=== PATIENT | male | born 1965 | race Caucasian/White ===

== ENCOUNTER 2024-11-08 17:37 | Inpatient (IN) | payer MEDICAID, MEDICARE ==
--- NOTE | 2024-11-08 18:11 | ED ---
Psych HPI - General Chief Complaint: Psychiatric Symptoms Stated Complaint: vomiting, needs meds Time Seen by Provider: 11/08/24 17:57 Source: patient, RN notes reviewed Mode of arrival: ambulatory - History of Present Illness Initial Comments: 58-year-old male presenting for suicidal ideation. States he has been off his meds since November 01 and is now hearing voices in his head that are telling him that he is no good and he should kill himself. Patient states he recently moved here earlier this month from [place]. He had a psychiatrist in [place] that would prescribe his medications but due to the move he has not been able to obtain a new prescription. Denies homicidal ideation. He lives with his cousin. He does endorse nasal congestion and cough over the past several days, otherwise no medical complaints. - Related Data Allergies Allergy/AdvReac Type Severity Reaction Status Date / Time butorphanol [From Stadol] Allergy Unknown Verified 11/08/24 20:31 ketorolac [From Toradol] Allergy Unknown Verified 11/08/24 20:31 levofloxacin [From Levaquin] Allergy Unknown Verified 11/08/24 20:31 morphine Allergy Unknown Verified 11/08/24 20:31 Sulfa (Sulfonamide Allergy Unknown Verified 11/08/24 20:31 Antibiotics) Review of Systems ROS Statement: Those systems with pertinent positive or pertinent negative responses have been documented in the HPI. ROS Other: All systems not noted in ROS Statement are negative. Past Medical History Past Medical History: Cancer, COPD, Hypertension Additional Past Medical History / Comment(s): chronic back pain History of Any Multi-Drug Resistant Organisms: None Reported Additional Past Surgical History / Comment(s): prostate cx Past Psychological History: Bipolar, Depression, Schizoaffective Disorder Smoking Status: Current every day smoker Past Alcohol Use History: None Reported Past Drug Use History: None Reported General Exam Limitations: no limitations General appearance: alert, in no apparent distress Head exam: Present: atraumatic, normocephalic, normal inspection Eye exam: Present: normal appearance, PERRL, EOMI. Absent: scleral icterus, conjunctival injection, periorbital swelling Neurological exam: Present: alert, oriented X3 Psychiatric exam: Present: normal mood, flat affect, suicidal ideation. Absent: homicidal ideation Skin exam: Present: warm, dry, intact, normal color. Absent: rash Course Vital Signs 11/08/24 17:41 Temperature 97.7 F Pulse Rate 81 Respiratory 16 Rate Blood Pressure 162/110 O2 Sat by Pulse 95 Oximetry Medical Decision Making - Medical Decision Making Was pt. sent in by a medical professional or institution (, [facility], [facility], urgent care, hospital, or [place] [facility] [place]...) When possible be specific @ -No Did you speak to anyone other than the patient for history (EMS, parent, family, police, friend...)? What history was obtained from this source @ -No Did you review nursing and triage notes (agree or disagree)? Why? @ -I reviewed and agree with nursing and triage notes Were old charts reviewed (outside hosp., previous admission, EMS record, old EKG, old radiological studies, urgent care reports/EKG's, [place] [facility] [place] records)? Report findings @ -No old charts were reviewed Differential Diagnosis (chest pain, altered mental status, abdominal pain women, abdominal pain men, vaginal bleeding, weakness, fever, dyspnea, syncope, headache, dizziness, GI bleed, back pain, seizure, CVA, palpatations, mental health, musculoskeletal)? @ -Differential Mental Health Depression, anxiety, bipolar, psychosis, schizophrenia, borderline personality, situational depression, adjustment disorder, behavioral disorder, brain tumor, malingering, substance abuse, encephalopathy, medication reaction, dementia, hypothyroidism, degenerative neurologic disorder, lupus.... This is not meant to be all-inclusive list EKG interpreted by me (3pts min.). @ -None X-rays interpreted by me (1pt min.). @ -None done CT interpreted by me (1pt min.). @ -None done U/S interpreted by me (1pt. min.). @ -None done What testing was considered but not performed or refused? (CT, X-rays, U/S, labs)? Why? @ -None What meds were considered but not given or refused? Why? @ -None Did you discuss the management of the patient with other professionals (professionals i.e. , [facility], [facility], lab, RT, psych nurse, social media senior associate, patient care nursing assistant, teacher, security officer supervisor, case finisher)? Give summary @ -I spoke with Trisha from [facility] who recommends admission for inpatient psychiatric treatment Was smoking cessation discussed for >3mins.? @ -No Was critical care preformed (if so, how long)? @ -No Were there social determinants of health that impacted care today? How? (Homelessness, low income, unemployed, alcoholism, drug addiction, transportation, low edu. Level, literacy, decrease access to med. care, assisted, rehab)? @ -No Was there de-escalation of care discussed even if they declined (Discuss DNR or withdrawal of care, Hospice)? DNR status @ -No What co-morbidities impacted this encounter? (DM, HTN, Smoking, COPD, CAD, Cancer, CVA, ARF, Chemo, Hep., AIDS, mental health diagnosis, sleep apnea, morbid obesity)? @ -None Was patient admitted / discharged? Hospital course, mention meds given and route, prescriptions, significant lab abnormalities, going to OR and other pertinent info. @ -Admitted. 58-year-old male presenting for suicidal ideations. Patient has been off of his psychiatric medications and is hearing voices in his head telling him to kill himself. Patient endorses nasal congestion and cough however no other medical complaints at this time. Patient is negative for influenza, COVID-19, and RSV. Patient is medically cleared to be seen by [facility]. I spoke with Trisha from [facility] who recommends admission for inpatient psychiatric treatment. I agree with this plan. Patient is going to sign himself in for admission. Case was discussed with my ED attending Dr. Arreola. Undiagnosed new problem with uncertain prognosis? @ -No Drug Therapy requiring intensive monitoring for toxicity (Heparin, Nitro, Insulin, Cardizem)? @ -No Were any procedures done? @ -No Diagnosis/symptom? @ -Suicidal ideation Acute, or Chronic, or Acute on Chronic? @ -Acute Uncomplicated (without systemic symptoms) or Complicated (systemic symptoms)? @ -Complicated Side effects of treatment? @ -No Exacerbation, Progression, or Severe Exacerbation? @ -No Poses a threat to life or bodily function? How? (Chest pain, USA, [place], pneumonia, PE, COPD, DKA, ARF, appy, cholecystitis, CVA, Diverticulitis, Homicidal, Suicidal, threat to staff... and all critical care pts) @ -Yes, suicidal - Lab Data Lab Results 11/08/24 11/08/24 Range/Units 18:31 18:31 Urine Opiates Screen Not Detected (NotDetected) Ur Oxycodone Screen Not Detected (NotDetected) Urine Methadone Screen Not Detected (NotDetected) Ur Barbiturates Screen Not Detected (NotDetected) U Tricyclic Antidepress Not Detected (NotDetected) Ur Phencyclidine Scrn Not Detected (NotDetected) Ur Amphetamines Screen Not Detected (NotDetected) U Methamphetamines Scrn Not Detected (NotDetected) U Benzodiazepines Scrn Not Detected (NotDetected) Urine Cocaine Screen Not Detected (NotDetected) U Marijuana (THC) Screen Not Detected (NotDetected) Influenza Type A (PCR) Not Detected (Not Detectd) Influenza Type B (PCR) Not Detected (Not Detectd) RSV (PCR) Not Detected (Not Detectd) SARS-CoV-2 (PCR) Not Detected (Not Detectd) Disposition Clinical Impression: Suicidal ideation Disposition: ADMITTED IP TO THIS HOSP Referrals: None,Stated [Primary Care Provider] - 1-2 days Time of Disposition: 20:32
[2024-11-08 19:08] LABS: Amphetamine Screen,Urine Not Detected (NotDetected); Barbiturate Screen,Urine Not Detected (NotDetected); Benzodiazepines Screen,Urine Not Detected (NotDetected); Cocaine Screen,Urine Not Detected (NotDetected); Methadone Screen, Urine Not Detected (NotDetected); Opiate Screen,Urine Not Detected (NotDetected); Oxycodone Screen, Urine Not Detected (NotDetected); Phencyclidine Screen,Urine Not Detected (NotDetected); Tricyclic Antidepressant,Urine Not Detected (NotDetected); Urn Cannabinoid Scrn Not Detected (NotDetected)
[2024-11-08 19:27] LABS: Influenza A Not Detected (Not Detectd); Influenza B Not Detected (Not Detectd); RSV Not Detected (Not Detectd)
[2024-11-09] MEDS ORDERED: haloperidoL 5 MG TAB PO PRN (00:45)
[2024-11-09] MEDS ORDERED: IBUPROFEN 600 MG TAB PO PRN (00:45)
[2024-11-09] MEDS ORDERED: ACETAMINOPHEN TAB 325 MG TAB PO PRN (00:45)
[2024-11-09] MEDS ORDERED: LORazepam 2 MG/ML INJ IM PRN (00:45)
[2024-11-09] MEDS ORDERED: HALOPERIDOL LACTATE 5 MG/ML 1 ML VIAL IM PRN (00:45)
[2024-11-09] MEDS ORDERED: MAGNESIUM HYDROXIDE 2,400 MG/30 ML CUP PO PRN (00:45)
[2024-11-09] MEDS: LORazepam 1 MG TAB PO PRN (09:04)
[2024-11-09 09:15] LABS: Amorphous Sediment,Urine Rare /hpf; Appearance,Urine Cloudy (Clear); Bilirubin,Urine Negative (Negative); Blood,Urine Negative (Negative); Calcium Oxalate Crystals,Urine Rare /hpf; Color,Urine Yellow; Glucose,Urine (UA) Negative (Negative); Ketones,Urine Negative (Negative); Leukocyte Esterase,Urine Negative (Negative); Mucus,Urine Rare /hpf; Nitrite,Urine Negative (Negative); Protein,Urine Trace (Negative); RBC,Urine 2 /hpf (0-5); Specific Gravity,Urine 1.022 (1.001-1.035); Squamous Epithelial Cell,Urine <1 /hpf (0-4); Urobilinogen,Urine <2.0 mg/dL (<2.0); WBC,Urine 3 /hpf (0-5)
--- NOTE | 2024-11-09 16:04 | P.HP ---
Psychiatric H&P - . H&P Date: 11/09/24 History & Physical: Allergies Allergy/AdvReac Type Severity Reaction Status Date / Time butorphanol [From Stadol] Allergy Unknown Verified 11/08/24 20:31 ketorolac [From Toradol] Allergy Unknown Verified 11/08/24 20:31 levofloxacin [From Levaquin] Allergy Unknown Verified 11/08/24 20:31 morphine Allergy Unknown Verified 11/08/24 20:31 Sulfa (Sulfonamide Allergy Unknown Verified 11/08/24 20:31 Antibiotics) Vital Signs Temp 97.8 F 11/09/24 10:02 Pulse 69 11/09/24 10:02 Resp 18 11/09/24 10:02 BP 114/74 11/09/24 10:02 Pulse Ox 96 11/09/24 01:28 FiO2 Intake & Output 11/08/24 11/09/24 11/09/24 18:59 06:59 18:59 Weight 96.615 kg Laboratory Last Values Urine Color Yellow 11/08/24 18:31 Urine Appearance Cloudy (Clear) 11/08/24 18:31 Urine pH 7.0 (5.0-8.0) 11/08/24 18:31 Ur Specific [place] 1.022 (1.001-1.035) 11/08/24 18:31 Urine Protein Trace (Negative) H 11/08/24 18:31 Urine Glucose (UA) Negative (Negative) 11/08/24 18:31 Urine Ketones Negative (Negative) 11/08/24 18:31 Urine Blood Negative (Negative) 11/08/24 18:31 Urine Nitrite Negative (Negative) 11/08/24 18:31 Urine Bilirubin Negative (Negative) 11/08/24 18:31 Urine Urobilinogen <2.0 mg/dL (<2.0) 11/08/24 18:31 Ur Leukocyte Esterase Negative (Negative) 11/08/24 18:31 Urine RBC 2 /hpf (0-5) 11/08/24 18:31 Urine WBC 3 /hpf (0-5) 11/08/24 18:31 Ur Squamous Epith Cells <1 /hpf (0-4) 11/08/24 18:31 Calcium Oxalate Crystal Rare /hpf (None) H 11/08/24 18:31 Amorphous Sediment Rare /hpf (None) H 11/08/24 18:31 Urine Mucus Rare /hpf (None) H 11/08/24 18:31 Urine Opiates Screen Not Detected (NotDetected) 11/08/24 18:31 Ur Oxycodone Screen Not Detected (NotDetected) 11/08/24 18:31 Urine Methadone Screen Not Detected (NotDetected) 11/08/24 18:31 Ur Barbiturates Screen Not Detected (NotDetected) 11/08/24 18:31 U Tricyclic Antidepress Not Detected (NotDetected) 11/08/24 18:31 Ur Phencyclidine Scrn Not Detected (NotDetected) 11/08/24 18:31 Ur Amphetamines Screen Not Detected (NotDetected) 11/08/24 18:31 U Methamphetamines Scrn Not Detected (NotDetected) 11/08/24 18:31 U Benzodiazepines Scrn Not Detected (NotDetected) 11/08/24 18:31 Urine Cocaine Screen Not Detected (NotDetected) 11/08/24 18:31 U Marijuana (THC) Screen Not Detected (NotDetected) 11/08/24 18:31 Influenza Type A (PCR) Not Detected (Not Detectd) 11/08/24 18:31 Influenza Type B (PCR) Not Detected (Not Detectd) 11/08/24 18:31 RSV (PCR) Not Detected (Not Detectd) 11/08/24 18:31 SARS-CoV-2 (PCR) Not Detected (Not Detectd) 11/08/24 18:31 11/09/24 15:56 58-year-old male presenting for suicidal ideation. States he has been off his meds since November 01 and is now hearing voices in his head that are telling him that he is no good and he should kill himself. Patient states he recently moved here earlier this month from [place]. He had a psychiatrist in [place] that would prescribe his medications but due to the move he has not been able to obtain a new prescription. Denies homicidal ideation. He lives with his cousin. He does endorse nasal congestion and cough over the past several days, otherwise no medical complaints. Current medications before he ran out: He was taking Haldol 5 mg 3 times a day which had been added on to Zyprexa 15 mg at night. They have decided not to increase his Zyprexa could already make him too sleepy but he was still leg with voices so they added Haldol. He was also on Cogentin 1 mg 3 times a day for side effects of Haldol. He was also on the Zyprexa 50 mg at night and prazosin 3 mg for PTSD nightmares. He was also on Effexor 150 backed up by BuSpar 15 mg 3 times a day. He was unable to explain why he didn't go and make sure that he refills. At this point he recognizes that he does not do well off of them. He said, "partially I have trouble with my memory". Social history: The patient's only child born to his parents that took off at and was never seen again. His mother said that this father had a daughter with her noise schizophrenia and a son withbipolar disorder. Mom got when the patient was fine and that man treated him well mom about a year ago at age 77 or his stepdad is still alive. 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 This in spite of the fact that he was discharged dishonorably for "cocaine methamphetamine" he says he hasn't done any cooking since although he did use some as recently as a year ago. He denies any alcohol or other substance use now or in the past. The patient dropped out of school in the 10th grade he had turned 19 decided to join the . No legal history. Mental status exam the patient was cooperative. I found him lying in his bed but he got up and came to talk with. Affect is flat response times are slow in his right his memory is very poor I gave him 3 things to remember and he couldn't even repeat them live alone remember even one of them 5 minutes later. He did much better on the presidents remembering them in order back to the younger Carlee. He abstracted that cats and snakes move and bite at first he said there was nothing similar it's hard for him to get his brain going. He could spell world forward and eventually got it backward although was very hard could not subtract 7 from 100. For the grass looks greener on the side defense he said [id number] side. He has multiple psychotic symptoms including voices put him down until to kill himself and they are quite dangerous. He also feels like somebody comes and sits on top of him on his bed at night is very frightening feels that people are looking at him following him and poisoning his food. Dystonic she see real people that aren't there he does see silhouettes. No manic episodes now or in the past. Self care was adequate although minimal, he most slowly he was oriented to where he was somewhat day of the week it was. Assessment patient has schizoaffective disorder although could be major depression with psychosis. He also has PTSD reasonably well-controlled especially when he takes his medicine currently think he is a danger to himself with the voices telling him to hurt himself. Once the medicines kick back in ag ain that should go away he just wants to take the same medicine he was on before and get connected with a med provider. Plan restart the antipsychotics first and then see whether adding the antidepre ssants is safe and make sense but they can stir up to psychosis if added first.
[2024-11-09] MEDS: haloperidoL 5 MG TAB PO SCH (16:36)
[2024-11-09] MEDS: BENZTROPINE MESYLATE 1 MG TAB PO SCH (16:36)
[2024-11-09] MEDS: OLANZapine 5 MG TAB PO SCH (20:06)
[2024-11-09] MEDS: PRAZOSIN 1 MG CAP PO SCH (20:06)
[2024-11-09] MEDS: traZODone HCL 100 MG TAB PO SCH (20:06)
--- NOTE | 2024-11-09 21:29 | P.MDCNMH ---
History of Present Illness H&P Date: 11/09/24 Patient is a 58-year-old male with history of hypertension, GERD who presented for evaluation of mental health needs. Medicine was consulted for medical evaluation. Patient states that he has lingering cough with some sputum production over the last 2 months but has improved over time. He also has some mild chronic back pain. Otherwise he has no complaints. Patient denies fever, chest pain, shortness of breath, abdominal pain, dysuria. Patient is afebrile, blood pressure 114/74, pulse 69, O2 saturation 96% on room air. UA, urine toxicology, and viral respiratory panel are unremarkable. No imaging to review. Social history: Patient endorses daily tobacco use, denies alcohol and recrea tional drug use. Review of systems: Reviewed, pertinent positive negatives as per HPI Gen: In NAD, non-toxic HEENT: normocephalic, atraumatic, hearing acuity is intact, mucous membranes moist CVS: perfusing all extremities well, no pitting edema Respiratory: symmetric chest expansion, no accessory muscle use GI: soft, NTTP, ND : no suprapubic tenderness, no CVA tenderness MSK/Derm: no rashes, cyanosis Neuro: CN II-XII intact, no motor weakness Assessment/plan: #Hypertension resume home lisinopril #GERD resume home pantoprazole #COPD resume home albuterol inhaler #Schizoaffective versus MDD with psychosis #PTSD -Management per primary psychiatry service Thank you for this consult, please reach out if any further questions/concerns. Past Medical History Past Medical History: Cancer, COPD, Hypertension Additional Past Medical History / Comment(s): chronic back pain History of Any Multi-Drug Resistant Organisms: None Reported Additional Past Surgical History / Comment(s): prostate cx Past Psychological History: Bipolar, Depression, Schizoaffective Disorder Smoking Status: Current every day smoker Past Alcohol Use History: None Reported Past Drug Use History: None Reported Medications and Allergies Home Medications Medication Instructions Recorded Confirmed Type Albuterol Inhaler [Ventolin Hfa 2 puff INHALATION RT-QID PRN 11/08/24 11/08/24 History Inhaler] Cogentin (Unknown Strength) 1 dose PO DIRECTED 11/08/24 11/08/24 History Esomeprazole Magnesium [NexIUM] 40 mg PO DAILY 11/08/24 11/08/24 History Fluticasone Nasal [place] [Flonase 2 spray EA NOSTRIL BID PRN 11/08/24 11/08/24 History Nasal [place]] OLANZapine 15 mg PO HS 11/08/24 11/08/24 History Prazosin HCl [Minipress] 2 mg PO HS 11/08/24 11/08/24 History Prazosin [Minipress] 1 mg PO HS 11/08/24 11/08/24 History Venlafaxine HCl [Effexor XR] 150 mg PO DIRECTED 11/08/24 11/08/24 History haloperidoL [Haldol] 5 mg PO DIRECTED 11/08/24 11/08/24 History lisinopriL [Zestril] 20 mg PO DIRECTED 11/08/24 11/08/24 History Allergies Allergy/AdvReac Type Severity Reaction Status Date / Time butorphanol [From Stadol] Allergy Unknown Verified 11/08/24 20:31 ketorolac [From Toradol] Allergy Unknown Verified 11/08/24 20:31 levofloxacin [From Levaquin] Allergy Unknown Verified 11/08/24 20:31 morphine Allergy Unknown Verified 11/08/24 20:31 Sulfa (Sulfonamide Allergy Unknown Verified 11/08/24 20:31 Antibiotics) Physical Exam Vitals: Vital Signs Temp Pulse Resp BP Pulse Ox 11/09/24 10:02 97.8 F 69 18 114/74 11/09/24 01:28 97.6 F 108 H 12 153/82 96 Cranial Nerve Examination - Cranial Nerves Cranial Nerve II- Optic: Intact Cranial Nerve III- Oculomotor: Intact Cranial Nerve IV- Trochlear: Intact Cranial Nerve V- Trigeminal: Intact Cranial Nerve - Abducens: Intact Cranial Nerve VII- Facial: Intact Cranial Nerve VIII- Auditory: Intact Cranial Nerve IX- Glossopharyngeal: Intact Cranial Nerve X- Vagus: Intact Cranial Nerve XI- Accessory: Intact Cranial Nerve XII- Hypoglossal: Intact Results Labs: Abnormal Lab Results - Last 24 Hours (Table) 11/08/24 Range/Units 18:31 Urine Protein Trace H (Negative) Calcium Oxalate Crystal Rare H (None) /hpf Amorphous Sediment Rare H (None) /hpf Urine Mucus Rare H (None) /hpf
[2024-11-09] MEDS: lisinopriL 20 MG TAB PO SCH (21:36)
[2024-11-09] MEDS ORDERED: ALBUTEROL INHALER 60 PUFF/8 GM INHALER (MHU) INHALATION PRN (22:00)
--- NOTE | 2024-11-10 08:18 | P.PN ---
Subjective Progress Note Date: 11/10/24 Principal diagnosis: schizoaffective disorder 58-year-old male presenting for suicidal ideation. States he has been off his meds since November 01 and is now hearing voices in his head that are telling him that he is no good and he should kill himself. Patient states he recently moved here earlier this month from [place]. He had a psychiatrist in [place] that would prescribe his medications but due to the move he has not been able to obtain a new prescription. Denies homicidal ideation. He lives with his cousin. He does endorse nasal congestion and cough over the past several days, otherwise no medical complaints. Current medications: He is back on the same medications he did before he came in and says he is tolerating them denies any constipation dizziness stiffness blurred vision or restlessness Mental status exam: Patient was somewhat sleepy.leslie ham came to the office to talk to me but didn't have much to say and basically just want to get on to breakfast. . He has multiple psychotic symptoms including voices put him down until to kill himself and they are quite dangerous. He also feels like somebody comes and sits on top of him on his bed at night is very frightening feels that people are looking at him following him and poisoning his food. He says that he does not see real people that aren't there but he does see silhouettes. No manic episodes now or in the past. Self care was adequate although minimal, he most slowly he was oriented to where he was somewhat day of the week it was. Assessment patient has schizoaffective disorder although could be major depression with psychosis. He also has PTSD reasonably well-controlled especially when he takes his medicine. Currently I think he is a danger to himself with the voices telling him to hurt himself. Once the medicines kick back in, the voices should go away. He just wants to take the same medicine he was on before and get connected with a med provider. he said he is tolerating his medications well had a good night sleep Skip Breakfast and Continue to Recover Objective - Vital Signs Vital signs: Vital Signs Temp 97.8 F 11/09/24 10:02 Pulse 69 11/09/24 10:02 Resp 18 11/09/24 10:02 BP 114/74 11/09/24 10:02 Pulse Ox 96 11/09/24 01:28 FiO2 Intake & Output 11/09/24 11/10/24 11/10/24 18:59 06:59 18:59 Weight 96.615 kg - Labs Labs: Abnormal Lab Results - Last 24 Hours (Table) 11/08/24 Range/Units 18:31 Urine Protein Trace H (Negative) Calcium Oxalate Crystal Rare H (None) /hpf Amorphous Sediment Rare H (None) /hpf Urine Mucus Rare H (None) /hpf
[2024-11-10] MEDS: PANTOPRAZOLE 40 MG TABLET PO SCH (08:41)
[2024-11-10 09:49] LABS: ALT 16 U/L (4-49); AST 18 U/L (17-59); African American GFR (CKD) >90 (>60 ml/min/1.73 sqM); Albumin 4.3 g/dL (3.5-5.0); Alkaline Phosphatase 44 U/L (38-126); Anion Gap 9 mmol/L; Blood Urea Nitrogen 17 mg/dL (9-20); Calcium 9.8 mg/dL (8.4-10.2); Carbon Dioxide 28 mmol/L (22-30); Chloride 101 mmol/L (98-107); Glucose 164 mg/dL (74-99); Non-African American GFR(CKD) 78 (>60 ml/min/1.73 sqM); Potassium 4.1 mmol/L (3.5-5.1); Sodium 138 mmol/L (137-145); Total Bilirubin 0.6 mg/dL (0.2-1.3); Total Protein 6.7 g/dL (6.3-8.2)
[2024-11-10 10:07] LABS: Basophils % (A) 0 %; Eosinophils # (A) 0.1 k/uL (0-0.7); Eosinophils % (A) 1 %; HCT 49.8 % (39.0-53.0); HGB 15.5 gm/dL (13.0-17.5); Lymphocytes # (A) 1.6 k/uL (1.0-4.8); Lymphocytes % (A) 26 %; MCH 28.8 pg (25.0-35.0); MCHC 31.1 g/dL (31.0-37.0); MCV 92.7 fL (80.0-100.0); Mean Platelet Volume 6.6; Monocytes # (A) 0.3 k/uL (0-1.0); Monocytes % (A) 4 %; Neutrophils # (A) 4.3 k/uL (1.3-7.7); Neutrophils % (A) 66 %; Platelet Count 234 k/uL (150-450); RBC 5.37 m/uL (4.30-5.90); RDW 12.8 % (11.5-15.5); WBC 6.5 k/uL (3.8-10.6)
[2024-11-10 12:48] LABS: LDL Cholesterol,Calculated 107.9 mg/dL (0.0-131.0)
[2024-11-10] MEDS: MAG HYDROX/AL HYDROX/SIMETH 355 ML BOTTLE PO PRN (18:53)
[2024-11-10] MEDS: FLUTICASONE NASAL 50MCG/SPRAY 16GM BTL EA NOSTRIL PRN (20:02)
[2024-11-10 20:23] VITALS: RESP 16
--- NOTE | 2024-11-11 13:04 | P.PN ---
Progress Note - Text Progress Note Date: 11/11/24 Interval History: Patient was seen wandering the hallways and was directable and agreeable to sp jeronimo with senior copywriter in the office. Patient appeared bright in affect, mentioning he feels "a lot better" due to restarting the medications. Patient mentioned running out of medications when he moved from [place] to here as he recently moved to [place] to be with family. He wishes to get reconnected with services in this location. He states since being restarted on medications, he no longer hears voices, and is tolerating the medications well with no adverse effects. At this time patient denies any suicidal or homicidal ideations, intent or plan. Patient denies any auditory, visual hallucinations and denies any paranoia or delusions. Patient denies any side effects from the medications and has been compliant with meds. Mental Status Exam: General Appearance: Patient appears to be stated age is alert, directable, and cooperative. He has fair grooming and hygiene Behavior: Patient is calmly seated without any agitated behavior. Speech: Patient's speech is fluent and nonpressured. Mood/Affect: Mood is improving mildly, affect is congruent and reactive. Suicidality/Homicidality: Patient denies having any suicidal or homicidal ideation intent or plan. Perceptions: Patient denies any visual hallucinations and denies any auditory hallucinations Though content/process: There is no evidence of any delusional thought content and thought process is linear and goal-directed. Memory and concentration: AOX3, grossly intact for the purposes of this session Judgment and insight: Improving mildly Assessment Schizoaffective disorder PTSD Plan: -Patient continues to meet criteria for inpatient psychiatric admission for symptom stabilization and safety. Patient has signed adult voluntary form and medication consent and was placed in patient's chart. -Medications: Haldol decanoate 100 mg IM to be given today, patient to receive second dose of Haldol decanoate 50 mg IM by his outpatient provider in 3-7 days. Patient to continue oral Haldol 5 mg 3 times daily until he receives his next monthly shot. Continue Zyprexa 15 mg at bedtime for psychosis, Cogentin 1 mg 3 times daily for EPS, prazosin 3 mg at bedtime for nightmares, trazodone 100 mg at bedtime for insomnia -When necessary Ativan and Haldol for agitation/aggression. -Labs: WNL other than elevated glucose -SW on board for discharge planning. Encouraged the patient to participate in milieu. Patient to be discharged back to cousin's tomorrow pending transition to [facility]
[2024-11-11] MEDS: HALOPERIDOL DECANOATE 100 MG/ML 1 ML VIAL IM ONE (14:01)
[2024-11-11] MEDS: NICOTINE GUM (POLACRILEX) 2 MG GUM BUCCAL PRN (20:08)
[2024-11-12 08:25] VITALS: BP 115/82; PULSE 91; TEMP 96.8
--- NOTE | 2024-11-12 15:11 | P.DS ---
Providers Date of admission: 11/09/24 00:37 Expected date of discharge: 11/12/24 Attending physician: Shireen Serrano MD Consults: 11/09/24 00:45 Consult Physician Routine Consulting Provider: Stefani Rivas Consult Reason/Comments: H&P and medical Do you want consulting provider notified?: Yes Primary care physician: Stated None - Discharge Diagnosis(es) (1) Schizoaffective disorder Status: Acute Priority: High (2) PTSD (post-traumatic stress disorder) Status: Acute Priority: Medium Hospital Course: Admission HPI: Admission note was completed by Dr. Goff "58-year-old male presenting for suicidal ideation. States he has been off his meds since November 01 and is now hearing voices in his head that are telling him that he is no good and he should kill himself. Patient states he recently moved here earlier this month from [place]. He had a psychiatrist in [place] that would prescribe his medications but due to the move he has not been able to obtain a new prescription. Denies homicidal ideation. He lives with his cousin. He does endorse nasal congestion and cough over the past several days, otherwise no medical complaints. Current medications before he ran out: He was taking Haldol 5 mg 3 times a day which had been added on to Zyprexa 15 mg at night. They have decided not to increase his Zyprexa could already make him too sleepy but he was still leg with voices so they added Haldol. He was also on Cogentin 1 mg 3 times a day for side effects of Haldol. He was also on the Zyprexa 50 mg at night and prazosin 3 mg for PTSD nightmares. He was also on Effexor 150 backed up by BuSpar 15 mg 3 times a day. He was unable to explain why he didn't go and make sure that he refills. At this point he recognizes that he does not do well off of them. He said, "partially I have trouble with my memory"." Hospital course: Upon admission to the unit patient was directable and agreeable to commence treatment and signed adult voluntary form.. Patient got along well with other patients on the unit and followed unit protocol. Patient was compliant with the medications and denied any side effects throughout hospital course. Patient was started on Haldol 5 mg 3 times daily for psychosis, Zyprexa 15 mg at bedtime for psychosis, prazosin 3 mg at bedtime for nightmares, Cogentin 1 mg 3 times daily for EPS, trazodone 100 mg at bedtime for insomnia. Patient was transition to Haldol decanoate and received 100 mg IM on 11/11/2024, patient to receive the second loading dose of 50 mg IM in 3-7 days from this date with the monthly dose of 150 mg IM every 4 weeks thereafter. Patient encouraged to continue oral Haldol in the interim. Patient spoke of his stressors and engaged in therapy both group and individual. Patient was also seen by medical team for history and physical exam. Throughout the course of the hospitalization patient gradually improved with regards to mood, anxiety, sleep and returned back to their baseline level of functioning. On the day of discharge patient denied any suicidal or homicidal ideations intent or plan denied any auditory or visual hallucinations. The patient denied any access to guns or weapons. Patient denied any paranoia and did not endorse any delusions. Patient does not have a significant history of substance abuse and was counseled on abstaining from all substances including alcohol and marijuana. Patient was also counseled on the medications and need for regular compliance and was encouraged to follow-up with their outpatient appointment for mental health and also for primary care. Prior to discharge a family meeting will be arranged by director social welfare to answer any questions and ensure safety upon discharge including making sure that guns/weapons are either removed from the home or locked away. Patient to be discharged back home with cousin and will follow-up with [facility]. Mental status exam: General Appearance: Patient appears to be stated age is alert, pleasant, and cooperative. Patient is in no acute distress and has improved hygiene and grooming Behavior: Patient is calmly seated without any agitated behavior. Speech: Patient's speech is fluent and nonpressured. Mood/Affect: Patient reports their mood is "better", affect is congruent and euthymic. Suicidality/Homicidality: Patient denies having any suicidal or homicidal ideation intent or plan. Perceptions: Patient denies any auditory or visual hallucinations. Though content/process: There is no evidence of any delusional thought content and thought process is linear and goal-directed. More future oriented Memory and concentration: AOX3, grossly intact for the purposes of this session. Can spell "WORLD" backwards correctly. Judgment and insight: Good Impression: Schizoaffective disorder PTSD Plan: -Continue with discharge today as patient has improved and stabilized psychiatrically and is not currently an imminent threat to themself and/or others. -Continue medications: Haldol 5 mg 3 times daily, Zyprexa 15 mg at bedtime, Cogentin 1 mg 3 times daily, prazosin 3 mg at bedtime, trazodone 100 mg at bedtime. Patient received Haldol decanoate 100 mg IM on 11/11/2024 and to receive second loading dose of 50 mg IM in 3-7 days from this date with the monthly maintenance dose of 150 mg IM every 4 weeks. -Patient was counseled on the need for medication compliance and appropriate follow-up at mental health and also primary care for medical issues. Patient verbalized understanding and agreed. -Social work to help coordinate patients discharge today arrange for and conduct family meeting to ensure safety upon discharge and answer any questions/ concerns. also to ensure safe home environment that guns/weapons are either removed from the home or locked away. Social work also to arrange for patients follow up appointments with [facility] for psychiatric care along with follow up with primary care provider. -Patient counseled on abstaining from recreational drugs and marijuana and alcohol. Was informed/educated on the adverse effects on their physical and mental health. Patient verbally agreed and understood. -Patient was instructed to return to the hospital or seek immediate medical care if their psychiatric or medical symptoms do worsen or reoccur. Abnormal Labs 11/08/24 11/10/24 18:31 09:07 Glucose 164 H Urine Protein Trace H Calcium Oxalate Crystal Rare H Amorphous Sediment Rare H Urine Mucus Rare H Vital Signs Temp 96.8 F L 11/12/24 08:24 Pulse 91 11/12/24 08:24 Resp 16 11/11/24 20:09 BP 115/82 11/12/24 08:24 Pulse Ox 97 11/12/24 08:24 FiO2 Allergies Allergy/AdvReac Type Severity Reaction Status Date / Time butorphanol [From Stadol] Allergy Unknown Verified 11/09/24 23:04 ketorolac [From Toradol] Allergy Unknown Verified 11/08/24 20:31 morphine Allergy Unknown Verified 11/08/24 20:31 Sulfa (Sulfonamide Allergy Unknown Verified 11/08/24 20:31 Antibiotics) levofloxacin [From Levaquin] AdvReac Unknown Verified 11/09/24 23:04 Patient Condition at Discharge: Stable Plan - Discharge Summary Discharge Rx Participant: Yes New Discharge Prescriptions: New Nicotine Gum (Polacrilex) [Nicorette] 2 mg BUCCAL Q2HR PRN pieceofgum PRN Reason: Nicotine Cravings Pantoprazole [Protonix] 40 mg PO DAILY 30 Days #30 tab Benztropine Mesylate [Cogentin] 1 mg PO TID 30 Days #90 tab traZODone HCL [Desyrel] 100 mg PO HS 30 Days #30 tab haloperidoL [Haldol] 5 mg PO TID 30 Days #90 tab Prazosin [Minipress] 3 mg PO HS 30 Days #90 cap OLANZapine [ZyPREXA] 15 mg PO HS 30 Days #90 tab Haloperidol Decanoate [Haldol D] 150 mg IM QMONTHLY 30 Days #1 each Continue OLANZapine 15 mg PO HS lisinopriL [Zestril] 20 mg PO DIRECTED 30 Days #30 tab Discontinued Prazosin [Minipress] 1 mg PO HS Esomeprazole Magnesium [NexIUM] 40 mg PO DAILY Albuterol Inhaler [Ventolin Hfa Inhaler] 2 puff INHALATION RT-QID PRN PRN Reason: Shortness Of Breath Fluticasone Nasal [place] [Flonase Nasal [place]] 2 spray EA NOSTRIL BID PRN PRN Reason: Allergy Symptoms Cogentin (Unknown Strength) 1 dose PO DIRECTED Prazosin HCl [Minipress] 2 mg PO HS haloperidoL [Haldol] 5 mg PO DIRECTED Venlafaxine HCl [Effexor XR] 150 mg PO DIRECTED Discharge Medication List OLANZapine 15 mg PO HS 11/08/24 [History] Benztropine Mesylate [Cogentin] 1 mg PO TID 30 Days #90 tab 11/12/24 [Rx] Haloperidol Decanoate [Haldol D] 150 mg IM QMONTHLY 30 Days #1 each 11/12/24 [Rx] Nicotine Gum (Polacrilex) [Nicorette] 2 mg BUCCAL Q2HR PRN pieceofgum 11/12/24 [Rx] OLANZapine [ZyPREXA] 15 mg PO HS 30 Days #90 tab 11/12/24 [Rx] Pantoprazole [Protonix] 40 mg PO DAILY 30 Days #30 tab 11/12/24 [Rx] Prazosin [Minipress] 3 mg PO HS 30 Days #90 cap 11/12/24 [Rx] haloperidoL [Haldol] 5 mg PO TID 30 Days #90 tab 11/12/24 [Rx] lisinopriL [Zestril] 20 mg PO DIRECTED 30 Days #30 tab 11/12/24 [Rx] traZODone HCL [Desyrel] 100 mg PO HS 30 Days #30 tab 11/12/24 [Rx] Follow up Appointment(s)/Referral(s): [facility] [Outside] - 11/18/24 3:00 pm (11/18 @ 15:00 with Joseph Bansal 11/21 @ 08:[address] Soto ) [facility] [NON-STAFF] - 1 Week Patient Instructions/Handouts: Schizoaffective Disorder (DC), Post Traumatic Stress Disorder (DC) Activity/Diet/Wound Care/Special Instructions: [facility] Discharge Info Avoid the use of street drugs and alcohol. Take all medications as prescribed. When you are in need of refills on your medications, please contact your outpatient medical provider and/or outpatient psychiatrist. Please go to your scheduled outpatient appointments for aftercare treatment. If symptoms return or become worse, call the crisis line at or and/or visit the nearest emergency room for assistance. National Suicide and Crisis Lifeline - call or text 396 Discharge Disposition: HOME SELF-CARE
== END 2024-11-12 11:39 | disposition home or self-care (01) | DRG 885 ==
LOC: EC 17:37 → 3MHU 11-09 00:37
PROVIDERS: ADMIT Psychiatry & Neurology Psychiatry; ATTEND Psychiatry & Neurology Psychiatry
DX: F25.9 Schizoaffective disorder, unspecified (principal); R45.851 Suicidal ideations; J44.9 Chronic obstructive pulmonary disease, unspecified; I10 Essential (primary) hypertension; F43.10 Post-traumatic stress disorder, unspecified; G89.29 Other chronic pain; M54.9 Dorsalgia, unspecified; G47.00 Insomnia, unspecified; R73.9 Hyperglycemia, unspecified; F17.210 Nicotine dependence, cigarettes, uncomplicated; Z79.899 Other long term (current) drug therapy; Z88.6 Allergy status to analgesic agent; Z88.5 Allergy status to narcotic agent; Z88.2 Allergy status to sulfonamides; Z88.8 Allergy status to other drugs, medicaments and biological substances
CPT/HCPCS: 80053; 80061; 80306; 81001; 82075; 83036; 84443; 85025; 87636; 99285

== ENCOUNTER 2025-02-02 22:07 | Emergency (ER) | payer MEDICARE, OTHER ==
[2025-02-02] MEDS: LIDOCAINE 4% PATCH TOPICAL ONE (23:06)
[2025-02-02] MEDS: HYDROmorphone 1 MG/ML 1 ML SYRINGE IM STA (23:07)
--- NOTE | 2025-02-03 00:09 | ED ---
Back Pain HPI - General Chief Complaint: Back Pain/Injury Stated Complaint: back pain Time Seen by Provider: 02/02/25 22:25 Source: patient Limitations: no limitations - History of Present Illness Initial Comments: 59-year-old male presenting with chief complaint of lower back pain. Patient has history of chronic back pain. He reports that yesterday he was doing some heavy lifting and he thinks he may have strained his back. He is having some radiation of pain down the leg. No loss of bowel or bladder control or saddle paresthesia. No nausea, vomiting, abdominal pain, urinary symptoms, flank pain. - Related Data Home Medications Medication Instructions Recorded Confirmed OLANZapine 15 mg PO HS 11/08/24 11/08/24 Previous Rx's Medication Instructions Recorded Benztropine Mesylate [Cogentin] 1 mg PO TID 30 Days #90 tab 11/12/24 Haloperidol Decanoate [Haldol D] 150 mg IM QMONTHLY 30 Days #1 each 11/12/24 Nicotine Gum (Polacrilex) 2 mg BUCCAL Q2HR PRN pieceofgum 11/12/24 [Nicorette] OLANZapine [ZyPREXA] 15 mg PO HS 30 Days #90 tab 11/12/24 Pantoprazole [Protonix] 40 mg PO DAILY 30 Days #30 tab 11/12/24 Prazosin [Minipress] 3 mg PO HS 30 Days #90 cap 11/12/24 haloperidoL [Haldol] 5 mg PO TID 30 Days #90 tab 11/12/24 lisinopriL [Zestril] 20 mg PO DIRECTED 30 Days #30 11/12/24 tab traZODone HCL [Desyrel] 100 mg PO HS 30 Days #30 tab 11/12/24 Lidocaine 5% Patch [Lidoderm 5% 1 patch TOPICAL DAILY PRN #30 patch 02/03/25 Patch] Allergies Allergy/AdvReac Type Severity Reaction Status Date / Time butorphanol [From Stadol] Allergy Unknown Verified 02/02/25 22:09 ketorolac [From Toradol] Allergy Unknown Verified 02/02/25 22:09 morphine Allergy Unknown Verified 02/02/25 22:09 Sulfa (Sulfonamide Allergy Unknown Verified 02/02/25 22:09 Antibiotics) levofloxacin [From Levaquin] AdvReac Unknown Verified 02/02/25 22:09 Review of Systems ROS Statement: Those systems with pertinent positive or pertinent negative responses have been documented in the HPI. ROS Other: All systems not noted in ROS Statement are negative. Past Medical History Past Medical History: Cancer, COPD, Hypertension Additional Past Medical History / Comment(s): chronic back pain History of Any Multi-Drug Resistant Organisms: None Reported Additional Past Surgical History / Comment(s): prostate cx Past Psychological History: Bipolar, Depression, Schizoaffective Disorder Smoking Status: Current every day smoker Past Alcohol Use History: None Reported Past Drug Use History: None Reported General Exam Limitations: no limitations General appearance: alert, in no apparent distress Head exam: Present: atraumatic, normocephalic, normal inspection Eye exam: Present: normal appearance, EOMI Neck exam: Present: normal inspection. Absent: meningismus Respiratory exam: Absent: respiratory distress Cardiovascular Exam: Present: regular rate Back exam: Present: normal inspection, tenderness Neurological exam: Present: alert, oriented X3 Psychiatric exam: Present: normal affect, normal mood Skin exam: Present: warm, dry, normal color Course Vital Signs 02/02/25 02/03/25 22:10 00:17 Temperature 97.7 F 98.0 F Pulse Rate 90 62 Respiratory 18 16 Rate Blood Pressure 173/91 138/90 O2 Sat by Pulse 97 96 Oximetry Medical Decision Making - Medical Decision Making Was pt. sent in by a medical professional or institution (NNEKA Morales, ALARM TECHNICIAN, urgent care, hospital, or fpc...) When possible be specific @ -No Did you speak to anyone other than the patient for history (EMS, parent, family, police, friend...)? What history was obtained from this source @ -No Did you review nursing and triage notes (agree or disagree)? Why? @ -I reviewed and agree with nursing and triage notes Were old charts reviewed (outside hosp., previous admission, EMS record, old EKG, old radiological studies, urgent care reports/EKG's, fpc records)? Report findings @ -No old charts were reviewed Differential Diagnosis (chest pain, altered mental status, abdominal pain women, abdominal pain men, vaginal bleeding, weakness, fever, dyspnea, syncope, headache, dizziness, GI bleed, back pain, seizure, CVA, palpatations, mental health, musculoskeletal)? @ - [facility] Differential Back Pain: Strain, zoster, cauda equina syndrome, epidural abscess, vertebral osteomyelitis, discitis, fracture, subluxation, disc herniation, DJD, spinal stenosis, dissection, AAA, pancreatitis, peptic ulcer disease, pyelonephritis, kidney stone… this is not meant to be an all-inclusive list. EKG interpreted by me (3pts min.). @ -As above X-rays interpreted by me (1pt min.). @ -None done CT interpreted by me (1pt min.). @ -None done U/S interpreted by me (1pt. min.). @ -None done What testing was considered but not performed or refused? (CT, X-rays, U/S, labs)? Why? @ -None What meds were considered but not given or refused? Why? @ -None Did you discuss the management of the patient with other professionals (professionals i.e. , PA, ALARM TECHNICIAN, lab, RT, psych nurse, group social worker, tax associate, teacher, chief creative officer, field nurse case manager)? Give summary @ -No Was smoking cessation discussed for >3mins.? @ -No Was critical care preformed (if so, how long)? @ -No Were there social determinants of health that impacted care today? How? (Homelessness, low income, unemployed, alcoholism, drug addiction, transportation, low edu. Level, literacy, decrease access to med. care, senior care, rehab)? @ -No Was there de-escalation of care discussed even if they declined (Discuss DNR or withdrawal of care, Hospice)? DNR status @ -No What co-morbidities impacted this encounter? (DM, HTN, Smoking, COPD, CAD, Cancer, CVA, ARF, Chemo, Hep., AIDS, mental health diagnosis, sleep apnea, morbid obesity)? @ -None Was patient admitted / discharged? Hospital course, mention meds given and route, prescriptions, significant lab abnormalities, going to OR and other pertinent info. @ -59-year-old male with history of chronic back pain presented with chief complaint of lower back pain. Started after heavy lifting yesterday. No red flag symptoms. He reports improvement after pain medication and feels ready for discharge home. Follow-up with PCP. Report back to ER with any new or worsening symptoms. Discussed return parameters and answered all questions. Patient conveyed verbal understanding and agreed to the plan. I discussed this case in detail with my attending Dr. Trachy Undiagnosed new problem with uncertain prognosis? @ -No Drug Therapy requiring intensive monitoring for toxicity (Heparin, Nitro, Insulin, Cardizem)? @ -No Were any procedures done? @ -No Diagnosis/symptom? @ -Lumbar strain Acute, or Chronic, or Acute on Chronic? @ -Acute Uncomplicated (without systemic symptoms) or Complicated (systemic symptoms)? @ -Uncomplicated Side effects of treatment? @ -No Exacerbation, Progression, or Severe Exacerbation? @ -No Poses a threat to life or bodily function? How? (Chest pain, [place], [place], pneumonia, PE, COPD, DKA, ARF, appy, cholecystitis, CVA, Diverticulitis, Homicidal, Suicidal, threat to staff... and all critical care pts) @ -Unlikely Disposition Clinical Impression: Strain of lumbar region Disposition: HOME SELF-CARE Condition: Good Instructions (If sedation given, give patient instructions): Acute Low Back Pain (ED) Additional Instructions: Follow-up with PCP. Report back to ER with any new or worsening symptoms. Prescriptions: Lidocaine 5% Patch [Lidoderm 5% Patch] 1 patch TOPICAL DAILY PRN #30 patch PRN Reason: Pain Is patient prescribed a controlled substance at d/c from ED?: No Referrals: Eben Packer MD [Primary Care Provider] - 1-2 days Time of Disposition: 00:09
[2025-02-03 00:21] VITALS: BP 138/90; PULSE 62; RESP 16; TEMP 98
== END 2025-02-03 00:17 | disposition home or self-care (01) ==
LOC: EC 22:07
DX: S39.012A Strain of muscle, fascia and tendon of lower back, initial encounter (principal); G89.29 Other chronic pain; F17.200 Nicotine dependence, unspecified, uncomplicated; Z88.1 Allergy status to other antibiotic agents; Z88.2 Allergy status to sulfonamides; Z88.5 Allergy status to narcotic agent; Z88.8 Allergy status to other drugs, medicaments and biological substances; X58.XXXA Exposure to other specified factors, initial encounter
CPT/HCPCS: 99283; 96372; J1171

== ENCOUNTER 2025-03-01 16:09 | Emergency (ER) | payer MEDICARE, OTHER ==
[2025-03-01 16:27] VITALS: PULSE 98; RESP 18; TEMP 98.6
--- NOTE | 2025-03-01 17:00 | ED ---
Back Pain HPI - General Chief Complaint: Back Pain/Injury Stated Complaint: Back Pain Time Seen by Provider: 03/01/25 16:39 Source: patient, RN notes reviewed Mode of arrival: ambulatory Limitations: no limitations - History of Present Illness Initial Comments: This is a 59-year-old male who presents to the emergency department for back pain. Patient has a history of chronic back pain and was helping a friend lift firewood. About an hour afterwards he developed pain in his left lower back and states that it has been present since. He has radiation down his left leg into his foot. Denies any loss of bowel/bladder control or saddle anesthesia. States that he is unable to take NSAIDs due to a history of it causing renal failure. He does take hydrocodone chronically. Does not take muscle relaxers or any other medication. MD Complaint: back pain - Related Data Home Medications Medication Instructions Recorded Confirmed OLANZapine 15 mg PO HS 11/08/24 11/08/24 Previous Rx's Medication Instructions Recorded Benztropine Mesylate [Cogentin] 1 mg PO TID 30 Days #90 tab 11/12/24 Haloperidol Decanoate [Haldol D] 150 mg IM QMONTHLY 30 Days #1 each 11/12/24 Nicotine Gum (Polacrilex) 2 mg BUCCAL Q2HR PRN pieceofgum 11/12/24 [Nicorette] OLANZapine [ZyPREXA] 15 mg PO HS 30 Days #90 tab 11/12/24 Pantoprazole [Protonix] 40 mg PO DAILY 30 Days #30 tab 11/12/24 Prazosin [Minipress] 3 mg PO HS 30 Days #90 cap 11/12/24 haloperidoL [Haldol] 5 mg PO TID 30 Days #90 tab 11/12/24 lisinopriL [Zestril] 20 mg PO DIRECTED 30 Days #30 11/12/24 tab traZODone HCL [Desyrel] 100 mg PO HS 30 Days #30 tab 11/12/24 Lidocaine 5% Patch [Lidoderm 5% 1 patch TOPICAL DAILY PRN #30 patch 02/03/25 Patch] Cyclobenzaprine [Flexeril] 5 - 10 mg PO TID PRN #30 tablet 03/01/25 Lidocaine 5% Patch [Lidoderm 5% 1 patch TOPICAL DAILY PRN #30 patch 03/01/25 Patch] predniSONE 50 mg PO DAILY 5 Days #5 tab 03/01/25 Allergies Allergy/AdvReac Type Severity Reaction Status Date / Time butorphanol [From Stadol] Allergy Unknown Verified 03/01/25 16:27 ketorolac [From Toradol] Allergy Unknown Verified 03/01/25 16:27 morphine Allergy Unknown Verified 03/01/25 16:27 Sulfa (Sulfonamide Allergy Unknown Verified 03/01/25 16:27 Antibiotics) levofloxacin [From Levaquin] AdvReac Unknown Verified 03/01/25 16:27 Review of Systems ROS Statement: Those systems with pertinent positive or pertinent negative responses have been documented in the HPI. ROS Other: All systems not noted in ROS Statement are negative. Past Medical History Past Medical History: Cancer, COPD, Hypertension Additional Past Medical History / Comment(s): chronic back pain History of Any Multi-Drug Resistant Organisms: None Reported Additional Past Surgical History / Comment(s): prostate cx Past Psychological History: Bipolar, Depression, Schizoaffective Disorder Smoking Status: Current every day smoker Past Alcohol Use History: None Reported Past Drug Use History: None Reported General Exam Limitations: no limitations General appearance: alert, in no apparent distress Head exam: Present: atraumatic, normocephalic, normal inspection Respiratory exam: Present: normal lung sounds bilaterally. Absent: respiratory distress, wheezes, rales, rhonchi, stridor Cardiovascular Exam: Present: regular rate, normal rhythm Back exam: Present: other (Tenderness to palpation over the left lower back) Neurological exam: Present: alert, oriented X3, CN II-XII intact Psychiatric exam: Present: normal affect, normal mood Skin exam: Present: warm, dry, intact, normal color. Absent: rash Course Vital Signs 03/01/25 03/01/25 16:25 17:51 Temperature 98.6 F Pulse Rate 98 98 Respiratory 18 18 Rate Blood Pressure 159/99 159/91 O2 Sat by Pulse 96 98 Oximetry Medical Decision Making - Medical Decision Making This is a 59 year old male who presents to the emergency department for back pain. Was pt. sent in by a medical professional or institution? @ -No Did you speak to anyone other than the patient for history? @ -No Did you review nursing and triage notes? @ -Yes, and I agree, it is accurate with regards to the patient's symptoms. Were old charts reviewed? @ -No Differential Diagnosis? @ -Differential Back Pain: Strain, zoster, cauda equina syndrome, epidural abscess, vertebral osteomyelitis, discitis, fracture, subluxation, disc herniation, DJD, spinal stenosis, dissection, AAA, pancreatitis, peptic ulcer disease, pyelonephritis, kidney stone, this is not meant to be an all-inclusive list. EKG interpreted by me (3pts min.)? @ -Not obtained X-rays interpreted by me (1pt min.)? @ -X-ray of the lumbar spine obtained. My interpretation identifies no acute fractures. CT interpreted by me (1pt min.)? @ -Not obtained U/S interpreted by me (1pt. min.)? @ -Not obtained What testing was considered but not performed? (CT, X-rays, U/S, labs)? Why? @ -None What meds were considered but not given? Why? @ -None Did you discuss the management of the patient with other professionals? @ -No Did you reconcile home meds? @ -No Was smoking cessation discussed for >3mins.? @ -No Was critical care preformed (if so, how long)? @ -No Were there social determinants of health that impacted care today? How? (Homelessness, low income, unemployed, alcoholism, drug addiction, transportation, low edu. Level, literacy, decrease access to med. care, snf, rehab)? @ -No Was there de-escalation of care discussed even if they declined? (Discuss DNR or withdrawal of care, Hospice)? @ -No What co-morbidities impacted this encounter? (DM, HTN, Smoking, COPD, CAD, Cancer, CVA, Hep., AIDS, mental health diagnosis, sleep apnea, morbid obesity)? @ -Chronic back pain Was patient admitted / discharged? @ -Discharged. X-ray of the lumbar spine obtained revealing degenerative changes without acute process. He was not exhibiting any red flag signs or symptoms such as loss of bowel/bladder control or saddle anesthesia. Patient is unable to take NSAIDs. Due to the radicular nature of his symptoms, advised that he can try a course of steroids in conjunction with muscle relaxers and a lidocaine patch. Patient was in agreement. Pain was treated in the emergency department and a prescription for prednisone, Flexeril, and lidocaine patches was provided with dosing instructions reviewed. Patient discharged home in stable condition. Case discussed with ED attending Dr. Sands. Return precautions reviewed in depth, the patient is instructed to return to the emergency department with any new, worsening, or concerning symptoms. Patient verbalized understanding. Undiagnosed new problem with uncertain prognosis? @ -None Drug Therapy requiring intensive monitoring for toxicity (Heparin, Nitro, Insulin, Cardizem)? @ -None Were any procedures done? @ -None Diagnosis/symptom? @ -Left lumbar radiculopathy Acute, or Chronic, or Acute on Chronic? @ -Acute Uncomplicated (without systemic symptoms) or Complicated (systemic symptoms)? @ -Uncomplicated Side effects of treatment? @ -None Exacerbation, Progression, or Severe Exacerbation] @ -Not applicable Poses a threat to life or bodily function? @ -No - Radiology Data Radiology results: report reviewed, image reviewed Disposition Clinical Impression: Left lumbar radiculopathy Disposition: HOME SELF-CARE Condition: Fair Instructions (If sedation given, give patient instructions): Acute Low Back Pain (ED), Lumbar Radiculopathy (ED) Additional Instructions: Return to the emergency department with any new, worsening, or concerning symptoms. Take the prednisone daily for 5 days. Take the Flexeril as 1 to 2 tablets up to 3 times daily. Be aware that this may make you drowsy. You can also apply the lidocaine patches daily. Follow up with your primary care provider in 1-2 days. Prescriptions: Cyclobenzaprine [Flexeril] 5 - 10 mg PO TID PRN #30 tablet PRN Reason: Pain Lidocaine 5% Patch [Lidoderm 5% Patch] 1 patch TOPICAL DAILY PRN #30 patch PRN Reason: Pain predniSONE 50 mg PO DAILY 5 Days #5 tab Is patient prescribed a controlled substance at d/c from ED?: No Referrals: Eben Packer MD [Primary Care Provider] - 1-2 days Time of Disposition: 17:31
--- NOTE | 2025-03-01 17:07 | XR ---
EXAMINATION TYPE: XR lumbar spine 2 or 3V DATE OF EXAM: 03/01/2025 5:01 PM COMPARISON: None available. CLINICAL INDICATION: Male, 59 years old with history of Low back injury; PHH, pain TECHNIQUE: XR lumbar spine 2 or 3V - Frontal, lateral and coned in L5-S1 lateral views of the spine. FINDINGS: 5 lumbar type vertebral bodies are present for the purposes of this evaluation. Lumbar spine vertebral body heights are maintained. No definite acute fracture or traumatic subluxati on. Calcified metastatic disease of the abdominal aorta. Multilevel facet arthropathy, as well as L4- L5 and L5-S1 indeterminate hypodensity within the L5-S1 intervertebral disc space. No evidence of sco liotic curvature. Minimal anterior ossified formation. IMPRESSION: 1. No acute fracture or traumatic subluxation. 2. Lumbosacral spine degenerative changes as above. [facility], , 03/01/2025 5:05 PM
[2025-03-01] MEDS: DEXAMETHASONE SOD PHOSPHATE 10 MG/ML 1 ML VIAL IM STA (17:44)
[2025-03-01] MEDS: CYCLOBENZAPRINE 10 MG TAB PO STA (17:45)
[2025-03-01] MEDS: HYDROmorphone 1 MG/ML 1 ML SYRINGE IM STA (17:45)
[2025-03-01] MEDS: LIDOCAINE 4% PATCH TOPICAL ONE (17:46)
[2025-03-01 17:53] VITALS: BP 159/91
== END 2025-03-01 17:52 | disposition home or self-care (01) ==
LOC: EC 16:09
DX: M54.16 Radiculopathy, lumbar region (principal); M54.50 Low back pain, unspecified; G89.29 Other chronic pain; F17.200 Nicotine dependence, unspecified, uncomplicated; Z88.1 Allergy status to other antibiotic agents; Z88.2 Allergy status to sulfonamides; Z88.5 Allergy status to narcotic agent; Z88.8 Allergy status to other drugs, medicaments and biological substances
CPT/HCPCS: 72100; 99283; 96372; J1100; J1171